=== PATIENT | male | born 1970 | race Caucasian/White ===

== ENCOUNTER 2023-01-06 11:36 | Emergency (ER) | payer OTHER, SELFPAY ==
[2023-01-06] VITALS (29 sets, daily range): BP systolic 126–174; BP diastolic 79–95; PULSE 55–76; RESP 18; TEMP 36.5; O2SAT 92–100; BMI 22.8
--- NOTE | 2023-01-06 12:05 | CRLHL7_ITS ---
For Patients: As a result of the Century Cures Act, medical imaging exams and procedure reports are released immediately into your electronic medical record. You may view this report before your referring provider. If you have questions, please contact your health care provider. INDICATION: Left flank pain TECHNIQUE: Axial images were obtained from the diaphragm to the pubic symphysis. Reformats were obtained in the coronal and sagittal plane. IV Contrast: None Oral Contrast: None COMPARISON: None. FINDINGS: Lower chest: Unremarkable. Liver: Unremarkable. Normal in size and attenuation. No masses. Gallbladder and bile ducts: Unremarkable. No stones or inflammation. No biliary dilatation. Spleen: Unremarkable. Normal in size without mass. Pancreas: Unremarkable. No mass or inflammation. Adrenal glands: Unremarkable. No nodules. Kidneys: Kidneys are symmetric with mild left hydronephrosis. At the level of the left ureterovesicular junction there is a 3 x 3 x 3 millimeter obstructing stone. Vasculature: Unremarkable. GI tract: The stomach is unremarkable. There are no dilated loops of large or small intestine. Appendix is unremarkable. Pelvis: Unremarkable. Bones: Unremarkable for age. IMPRESSION: Nephrolithiasis with mild left hydronephrosis and obstructing left ureterovesicular junction stone measuring 3 millimeters. Please note that all CT scans at this facility use dose modulation, iterative reconstruction, and/or weight-based dosing when appropriate to reduce radiation dose to as low as reasonably achievable. Dictated by Thomas Patten MD @ 01/06/2023 2:17:33 PM (Electronically Signed)
[2023-01-06] MEDS: 0.9 % SODIUM CHLORIDE 1000 ml 1,000 ML IV ×2 (12:22→14:45)
[2023-01-06] MEDS: KETOROLAC 30 MG/ML inj IVP (12:26)
[2023-01-06] MEDS: ONDANSETRON 2 MG/ML inj 4 MG IVP (12:27)
--- NOTE | 2023-01-06 12:28 | ED_ITS ---
HPI - General Adult General Chief complaint: Flank Pain Stated complaint: left lower back pain and left testical pain Time Seen by Provider: 01/06/23 12:00 Source: patient Mode of arrival: ambulatory Limitations: no limitations History of Present Illness HPI narrative: 52-year-old male coming in today complaining of left flank pain radiating down into the groin that started around 10:00 a.m. this morning, so about 2-1/2 hours ago. Makes him feel lightheaded. He denies nausea or vomiting. No fevers or chills. He denies blood in his urine but he is having difficulty with urination. He denies any diarrhea or constipation. He has never had pain like this before. His past medical history is benign, he denies any medical problems or current medication use. He denies any past surgeries. Related Data Previous Rx's Medication Instructions Recorded ketorolac 10 mg tablet 10 mg PO TID 5 days #15 tabs 01/06/23 ondansetron HCl 4 mg tablet 4 mg PO TID PRN nausea and 01/06/23 vomiting #10 tabs tamsulosin 0.4 mg capsule (Flomax) 0.4 mg PO DAILY #14 caps 01/06/23 Allergies Allergy/AdvReac Type Severity Reaction Status Date / Time tree nuts Allergy Severe Anaphylaxis Uncoded 01/06/23 11:58 trees Allergy Severe Anaphylaxis Uncoded 01/06/23 11:58 Review of Systems Status of ROS: Reports: 10 or more systems reviewed and unremarkable except as noted in History and below PFSH PFS Social History Smoking Status: Never smoker Do you use any of these nicotine containing products: None Second hand tobacco smoke exposure: No How often do you have a drink containing alcohol: 2-3 times a week How many standard drinks containing alcohol do you have on a typical day: 1 or 2 How often do you have six or more drinks on one occasion: Never AUDIT-C Alcohol total score: 3 Non-prescribed substance use: denies use service: No Exam Narrative: Exam Narrative: Well-nourished well-developed patient , appears very uncomfortable. Alert and oriented. Answers questions appropriately. Mood and affect are appropriate. Thoughts are goal oriented and rational. No tangential or magical thinking noted. Patient speaks in full sentences without needing to catch his breath. HEENT: Normocephalic atraumatic. Pupils are equally round reactive to light. Extraocular muscles are intact. Conjunctivae are moist without any icterus noted. Moist mucous membranes. Posterior pharynx is normal. Neck is soft without any lymphadenopathy or thyromegaly. No masses are appreciated. Cardiovascular: Heart is regular rate and rhythm S1 and S2 are present without any murmurs. Lungs: Clear to auscultation bilaterally no wheezes rhonchi or rales are appreciated. Patient takes deep breaths without any discomfort. Abdomen: Soft and nondistended with normal bowel sounds. No guarding or rebound. No masses or organomegaly appreciated. He has some suprapubic discomfort, and left-sided CVA tenderness. Extremities: Bilateral lower extremities are without edema. Normal DP and PT pulses. Skin: Well perfused without any obvious rashes. Const: Vital Signs, click to edit/add: Vital Signs - 24 hr 01/06/23 11:53 01/06/23 12:56 01/06/23 13:00 Temperature 97.7 F Pulse Rate 55 L 57 L Pulse Rate [Right Pulse Oximeter] 55 L Respiratory Rate 18 Blood Pressure Blood Pressure [Ri ght Upper Arm] 174/79 H Pulse Oximetry 100 100 97 Oxygen Delivery Me thod Room Air 01/06/23 13:03 01/06/23 13:15 01/06/23 13:30 Temperature Pulse Rate 60 67 64 Pulse Rate [Right Pulse Oximeter] Respiratory Rate Blood Pressure 126/90 H Blood Pressure [Ri ght Upper Arm] Pulse Oximetry 95 94 98 Oxygen Delivery Me thod 01/06/23 13:31 01/06/23 13:45 01/06/23 14:00 Temperature Pulse Rate 60 67 73 Pulse Rate [Right Pulse Oximeter] Respiratory Rate Blood Pressure 126/83 Blood Pressure [Ri ght Upper Arm] Pulse Oximetry 98 99 96 Oxygen Delivery Me thod 01/06/23 14:02 01/06/23 14:15 01/06/23 14:30 Temperature Pulse Rate 71 71 74 Pulse Rate [Right Pulse Oximeter] Respiratory Rate Blood Pressure 140/87 H Blood Pressure [Ri ght Upper Arm] Pulse Oximetry 95 98 94 Oxygen Delivery Me thod 01/06/23 14:31 01/06/23 14:45 Temperature Pulse Rate 68 59 L Pulse Rate [Right Pulse Oximeter] Respiratory Rate Blood Pressure 135/88 Blood Pressure [Ri ght Upper Arm] Pulse Oximetry 98 99 Oxygen Delivery Me thod Course Course Hospital Course: IV was established, Toradol and Zofran given and IV fluids were started. Pain was poorly controlled he was given Dilaudid which did give him significant relief. CBC was unremarkable, chemistries unremarkable except for a low potassium at 2.9. Because of this we checked a magnesium level which was normal and we proceeded with an EKG which read by me showed sinus bradycardia with a pulse of 54. No T-wave changes. Patient was given 20 mEq potassium chloride orally. He still was unable to give a UA, therefore a 2 L of fluid was started. After 2 L of fluids he was feeling much better. Urine analysis was unremarkable. Vital Signs Vital signs: Initial Vital Signs Temperature 97.7 F 01/06/23 11:53 Temperature Source Temporal Artery Scan 01/06/23 11:53 Pulse Rate 55 L 01/06/23 11:53 Respiratory Rate 18 01/06/23 11:53 Blood Pressure 174/79 H 01/06/23 11:53 Blood Pressure Mean 110 H 01/06/23 11:53 Blood Pressure Position Sitting 01/06/23 11:53 Pulse Oximetry 100 01/06/23 11:53 Oxygen Delivery Method Room Air 01/06/23 11:53 Vital Signs Temperature 97.7 F 01/06/23 11:53 Pulse Rate 55 L 01/06/23 11:53 Respiratory Rate 18 01/06/23 11:53 Blood Pressure 174/79 H 01/06/23 11:53 Pulse Oximetry 100 01/06/23 11:53 Oxygen Delivery Method Room Air 01/06/23 11:53 Temperature 97.7 F 01/06/23 11:53 Pulse Rate 59 L 01/06/23 14:45 Respiratory Rate 18 01/06/23 11:53 Blood Pressure 135/88 01/06/23 14:31 Pulse Oximetry 99 01/06/23 14:45 Oxygen Delivery Method Room Air 01/06/23 11:53 Medical Decision Making MDM Narrative Medical decision making narrative: 52-year-old male with nephrolithiasis. Given that this is a 3 mm stone, it will likely pass on its own. Patient will be sent home on hydrocodone, Toradol and Flomax. I did consult with urologist on-call with Dr. Stokes, who agreed with this plan. Lab Data Lab results reviewed: Yes I reviewed the patient's lab results Labs: Lab Results 01/06/23 01/06/23 Range/Units 12:20 16:00 WBC 10.39 (4.50-11.00) K/uL RBC 4.97 (4.30-5.90) m/uL Hgb 14.2 (13.5-17.5) gm/dL Hct 43.4 (37.0-53.0) % MCV 87 (80-100) fL MCH 29 (26-34) pg MCHC 33 (32-36) gm/dL RDW Coeff of Tim 13.9 (11.5-15.5) % Plt Count 365 (140-440) K/uL Neut % (Auto) 76.4 H (42.0-72.0) % Lymph % (Auto) 16.0 L (20-44) % Ritchie % (Auto) 6.1 (0.0-11.0) % Eos % (Auto) 0.7 (0.0-7.0) % Baso % (Auto) 0.6 (0.0-3.0) % Neut # (Auto) 7.90 H (1.7-7.0) K/uL Lymph # (Auto) 1.70 (0.90-2.90) K/uL Ritchie # (Auto) 0.60 (0.00-0.90) K/UL Eos # (Auto) 0.07 (0.00-0.50) K/uL Baso # (Auto) 0.06 (0.00-0.30) K/uL Abs Immat Gran (auto) 0.02 (0.00-0.30) K/uL Imm/Tot Granulo (auto) 0.2 % Sodium 140 (135-149) mmol/L Potassium 2.9 L* (3.6-5.1) mmol/L Chloride 103 (96-114) mmol/L Carbon Dioxide 23 (20-32) mmol/L BUN 14 (7-30) mg/dL Creatinine 1.0 (0.5-1.5) mg/dL Estimated Creat Clear 83.16 Estimated GFR 91 ml/min Glucose 120 H (60-115) mg/dL Lactate 3.4 H (0.5-1.9) mmol/L Calcium 9.5 (8.4-10.6) mg/dL Magnesium 1.7 (1.5-2.6) mg/dL Total Bilirubin 0.8 (0.1-1.5) mg/dL Direct Bilirubin 0.1 (0.0-0.5) mg/dL AST 42 H (12-35) U/L ALT 26 (4-50) U/L Alkaline Phosphatase 73 (40-150) U/L C-Reactive Protein < 0.5 L (0.5-1.0) mg/dL Total Protein 8.3 (6.0-8.3) g/dL Albumin 4.8 (3.3-5.0) g/dL Lipase 214 (23-300) U/L Urine Color Yellow (Yellow) Urine Appearance Clear (Clear) Urine pH 6.5 (5.0-8.5) Ur Specific [place] 1.020 (1.000-1.030) Urine Protein Negative (Negative) Urine Glucose (UA) Negative (Negative) Urine Ketones Trace A (Negative) Urine Blood Negative (Negative) Urine Nitrite Negative (Negative) Urine Bilirubin Negative (Negative) Urine Urobilinogen 0.2 (0.2-1.0) Ur Leukocyte Esterase Negative (Negative) Urine RBC 0-2 (0-2) Urine WBC 2-5 (0-5) Ur Squamous Epith Cells None (None-Few) Urine Bacteria None (None) Imaging Data CT scan - abdomen: Attestation: I have reviewed the pertinent imaging results. Radiologist's impression: Axial images were obtained from the diaphragm to the pubic symphysis. Reformats were obtained in the coronal and sagittal plane. IV Contrast: None Oral Contrast: None COMPARISON: None. FINDINGS: Lower chest: Unremarkable. Liver: Unremarkable. Normal in size and attenuation. No masses. Gallbladder and bile ducts: Unremarkable. No stones or inflammation. No biliary dilatation. Spleen: Unremarkable. Normal in size without mass. Pancreas: Unremarkable. No mass or inflammation. Adrenal glands: Unremarkable. No nodules. Kidneys: Kidneys are symmetric with mild left hydronephrosis. At the level of the left ureterovesicular junction there is a 3 x 3 x 3 millimeter obstructing stone. Vasculature: Unremarkable. GI tract: The stomach is unremarkable. There are no dilated loops of large or small intestine. Appendix is unremarkable. Pelvis: Unremarkable. Bones: Unremarkable for age. IMPRESSION: Nephrolithiasis with mild left hydronephrosis and obstructing left ureterovesicular junction stone measuring 3 millimeters. ECG Data Attestation: I personally reviewed and interpreted this ECG as follows: Discharge Plan Discharge Clinical Impression: Nephrolithiasis, Hypokalemia Patient Disposition: Home, Self-Care Condition: Stable Additional Instructions: You will be sent home today with 1. Toradol which is an anti-inflammatory pain medication that you can take and drive. 2. Hydrocodone which is a stronger narcotic pain medication which she cannot drive with. 3. Flomax which is a me dication that will help relax the muscles around the stone to help it pass. 4., Zofran which is a medicine to help with nausea. If you develop pain that cannot be controlled with medications you were prescribed, you cannot keep down any fluids or you develop a fever, return to the ER. You also had low potassium today. Recommend you follow-up with a primary care provider in the next 24-48 hours to have your potassium levels rechecked. You should call to make an appointment in ask for a ER follow-up visit with a lab draw for a potassium level. Hydrocodone sent to [facility]. Prescriptions: New ondansetron HCl 4 mg tablet 4 mg PO TID PRN (Reason: nausea and vomiting) Qty: 10 0RF ketorolac 10 mg tablet 10 mg PO TID 5 Days Qty: 15 0RF tamsulosin [Flomax] 0.4 mg capsule 0.4 mg PO DAILY Qty: 14 0RF Follow Up/Referrals: Provider,Not a Local [Primary Care Provider] - Stand Alone Forms: [employer] Info Instructions
[2023-01-06 12:36] LABS: Lactate* 3.4 mmol/L (0.5-1.9)
[2023-01-06] MEDS: HYDROmorphone 0.5 mg/0.5 ml inj IVP ×2 (12:38→15:20)
[2023-01-06 12:41] LABS: Basophils Absolute Auto 0.06 K/uL (0.00-0.30); Basophils Percent Auto 0.6 % (0.0-3.0); Eosinophils Absolute Auto 0.07 K/uL (0.00-0.50); Eosinophils Percent Auto 0.7 % (0.0-7.0); Hematocrit 43.4 % (37.0-53.0); Hemoglobin* 14.2 gm/dL (13.5-17.5); Immature Granulocytes Abs Auto 0.02 K/uL (0.00-0.30); Immature Granulocytes Pct Auto 0.2 %; Mean Corpuscular HGB Conc 33 gm/dL (32-36); Mean Corpuscular Hemoglobin 29 pg (26-34); Mean Corpuscular Volume 87 fL (80-100); Monocytes Percent Auto 6.1 % (0.0-11.0); Neutrophils Percent Auto 76.4 % (42.0-72.0); Platelet Count* 365 K/uL (140-440); RDW Coefficient of Variation % 13.9 % (11.5-15.5); Red Blood Count 4.97 m/uL (4.30-5.90); White Blood Count* 10.39 K/uL (4.50-11.00)
[2023-01-06 12:45] LABS: Slide Review Reflex No
[2023-01-06 12:55] LABS: Albumin* 4.8 g/dL (3.3-5.0); Chloride* 103 mmol/L (96-114)
[2023-01-06 12:56] LABS: Sodium* 140 mmol/L (135-149)
[2023-01-06 12:58] LABS: Est. Creatinine Clearance* 83.16; Estimated Glomerular Filt Rate 91 ml/min
[2023-01-06 12:59] LABS: Alanine Aminotransferase* 26 U/L (4-50); Alkaline Phosphatase* 73 U/L (40-150); Aspartate Amino Transferase* 42 U/L (12-35); Bilirubin Direct* 0.1 mg/dL (0.0-0.5); Bilirubin Total* 0.8 mg/dL (0.1-1.5); Blood Urea Nitrogen* 14 mg/dL (7-30); Calcium* 9.5 mg/dL (8.4-10.6); Carbon Dioxide* 23 mmol/L (20-32); Glucose* 120 mg/dL (60-115); Lipase* 214 U/L (23-300); Total Protein* 8.3 g/dL (6.0-8.3)
[2023-01-06 13:23] LABS: C Reactive Protein* < 0.5 mg/dL (0.5-1.0); Potassium* 2.9 mmol/L (3.6-5.1)
[2023-01-06] MEDS: POTASSIUM CHLORIDE 10 MEQ CAPSULE ER 20 MEQ PO (13:32)
[2023-01-06 15:14] LABS: Magnesium* 1.7 mg/dL (1.5-2.6)
[2023-01-06 16:17] LABS: Appearance Urine Clear (Clear); Bilirubin Urine Negative (Negative); Blood Urine Negative (Negative); Color Urine Yellow (Yellow); Glucose Urine Negative (Negative); Ketones Urine Trace (Negative); Leukocyte Esterase Urine Negative (Negative); Nitrite Urine Negative (Negative); Protein Urine Negative (Negative); Urobilinogen Urine 0.2 (0.2-1.0); pH Urine 6.5 (5.0-8.5)
[2023-01-06 16:24] LABS: RBC Urine 0-2 (0-2)
== END 2023-01-06 17:26 | disposition home or self-care (01) ==
PROVIDERS: Emergency Provider Family Medicine
DX: E87.6 Hypokalemia (principal); N20.0 Calculus of kidney
CPT/HCPCS: 36415; 74176; 80048; 80076; 81001; 83605; 83690; 83735; 85025; 86140; 87086; 93005; 96374; 96375; 96376; 99284; 99285; A9270; J1170; J1885; J2405; J7030